=== PATIENT | male | born 1950 | race Hispanic/Latino ===

== ENCOUNTER 2023-02-17 07:20 | Day surgery (SDC) | payer OTHER ==
[2023-02-13 11:37] VITALS: BP 186/74
[2023-02-13 11:52] LABS: BASOPHILS % (AUTO) 0.3 % (0.0-5.0); EOSINOPHILS % (AUTO) 0.6 % (0.0-8.0); HEMATOCRIT 40.1 % (42-54); LYMPHOCYTES % (AUTO) 33.7 % (21.0-51.0); MEAN CORPUSCULAR HGB CONC 34.4 g/dL (32.0-36.0); MEAN CORPUSCULAR VOLUME 87.2 fL (79-99); MONOCYTES % (AUTO) 6.4 % (3.0-13.0); NEUTROPHILS % (AUTO) 58.6 % (40.0-77.0); PLATELET COUNT (AUTO) 236 K/uL (130-400); RED CELL DISTRIBUTION WIDTH 12.3 % (11.0-15.5)
[2023-02-13 11:55] LABS: CREATININE 0.8 mg/dL (0.5-1.5); POTASSIUM 4.7 mmol/L (3.5-5.1)
[~2023-02-17] VITALS: Ht 167.6 cm; Wt 79.7 kg
[2023-02-17] VITALS (19 sets, daily range): BP systolic 97–199; BP diastolic 60–96
[~2023-02-17 07:20] MED LIST: MVIT PO
[2023-02-17] MEDS ORDERED: CEFAZOLIN SODIUM 2 GM VIAL ONE (08:21)
[2023-02-17] MEDS ORDERED: LACTATED RINGERS 1000ML 1,000 ML IV ONE (08:21)
[2023-02-17] MEDS ORDERED: DEXAMETHASONE SOD PHOSPHATE 10MG/ML 1ML VIAL ONE (10:09)
[2023-02-17] MEDS ORDERED: SUCCINYLCHOLINE 200MG/10ML SYR ONE (10:09)
[2023-02-17] MEDS ORDERED: LIDOCAINE PF 100MG/5ML (2%) SYRINGE 5ML ONE (10:09)
[2023-02-17] MEDS ORDERED: ONDANSETRON 4MG INJ ONE (10:11)
[2023-02-17] MEDS ORDERED: MIDAZOLAM HCL 1 MG/ML 2ML VIAL ONE (10:11)
[2023-02-17] MEDS ORDERED: GLYCOPYRROLATE 1 MG/5 ML SYRINGE ONE (10:11)
[2023-02-17] MEDS ORDERED: PROPOFOL 10 MG/ML 20ML VIAL IV ONE (10:11)
[2023-02-17] MEDS ORDERED: NEOSTIGMINE 5MG/5ML SYR IV ONE (10:11)
[2023-02-17] MEDS ORDERED: FENTANYL CITRATE PF 50 MCG/1 ML 2ML VIAL ONE (10:12)
[2023-02-17] MEDS ORDERED: ROCURONIUM 10MG/1ML SYR 10 MG/ML ML ONE ×2 (10:12→12:09)
[2023-02-17] MEDS ORDERED: FENTANYL CITRATE PF 50 MCG/1 ML 5ML AMP IV ONE (13:44)
[2023-02-17] MEDS ORDERED: MEPERIDINE-PF 25 MG/ML SYG ONE (14:04)
[2023-02-17] MEDS ORDERED: HYDROMORPHONE 1 MG INJ ONE (14:19)
[2023-02-17] MEDS ORDERED: HYDRALAZINE 20MG/ML VIAL ONE (14:24)
== END 2023-02-17 15:40 | disposition home or self-care (01) ==
LOC: DAH 07:20
PROVIDERS: ATTEND Surgery
DX: K40.91 Unilateral inguinal hernia, without obstruction or gangrene, recurrent (principal); Z20.822 Contact with and (suspected) exposure to COVID-19; D17.6 Benign lipomatous neoplasm of spermatic cord; Z83.3 Family history of diabetes mellitus; Z87.891 Personal history of nicotine dependence; Z98.890 Other specified postprocedural states
CPT/HCPCS: 80048; 85025; 87426; 36415; 93005; 49651; 64486; A6260; A4663; J7030; A4344; A4215 ×2; J7120; J3010 ×2; J1170; J0330; J3490; J1100; J2710; J2001; J0360; J2250; J2704; J2405; J2175; J0690; C1781; A4223; A4222; A4221; A4600